=== PATIENT | female | born 1975 | race Caucasian/White ===

== ENCOUNTER → 2017-07-02 | Outpatient (CLI) | payer BC ==
[~2017-07-02] MED LIST: FLUO20CA42 PO; NAPR-243 PO
--- NOTE | 2017-07-02 19:45 | Diagnostic Imaging Report ---
PROCEDURE: US Thyroid. TECHNIQUE: Multiple real-time grayscale images were obtained of the thyroid in various projections. INDICATION: Elevated TSH. FINDINGS: The right thyroid lobe is 4.8 x 1.2 x 1.3 cm. The left lobe is 4.3 x 0.9 x 1.1 cm. There is a 0.6 x 0.4 x 0.4 cm left thyroid lobe isoechoic nodule with peripheral vascularity seen at its interface with the rest of the thyroid lobe. No other nodules seen. IMPRESSION: Nonspecific 6 mm nodule in the left thyroid lobe is seen. Dictated by: Dictated on workstation # [id number]
== END ==
LOC: RAD 10:05
PROVIDERS: ATTEND Family Medicine
DX: E04.1 Nontoxic single thyroid nodule (principal)
CPT/HCPCS: 76536

== ENCOUNTER 2017-09-08 12:20 | Emergency (ER) | payer BC ==
[~2017-09-08] VITALS: Ht 160 cm; Wt 60.3 kg
--- OUTSIDE RECORDS SUMMARY | 2017-09-08 12:25 | XMS REPORT | Continuity of Care Document ---
Author Author [facility] Organization [facility] Address Unknown Phone Unavailable Allergies Active Description Code Type Severity Reaction Onset Reported/Identified Relationship to Patient Clinical Status Yes Penicillins [id number] Drug Allergy Severe anaphylax 07/02/2010 Yes sulfamethoxazole [id number] Drug Allergy Severe HIVES 09/29/2014 Yes trimethoprim [id number] Drug Allergy Severe HIVES 09/29/2014 Medications There is no data. Problems Date Dx Coded Attending Type Code Diagnosis Diagnosed By 07/02/2010 Ot 873.42 07/02/2010 Ot E000.8 07/02/2010 Ot E849.0 07/02/2010 Ot E917.7 07/02/2010 Ot V06.1 07/11/2010 Ot V58.32 02/03/2012 Ot 844.1 SPRAIN MEDIAL COLLAT LIG 02/03/2012 Ot 924.01 CONTUSION OF HIP 02/03/2012 Ot 924.11 CONTUSION OF KNEE 02/03/2012 Ot 959.7 LOWER LEG INJURY NOS 02/03/2012 Ot E000.8 OTHER EXTERNAL CAUSE STATUS 02/03/2012 Ot E849.0 ACCIDENT IN HOME 02/03/2012 Ot E885.9 FALL FROM SLIPPING, TRIPPING, OR STUMBLI 08/24/2014 Ot 959.01 08/24/2014 Ot E000.8 08/24/2014 Ot E849.0 08/24/2014 Ot E928.9 08/24/2014 Ot 789.00 08/24/2014 LEOLA BURGOS DO Ot V76.12 09/07/2014 LEOLA BURGOS DO Ot V76.12 09/10/2014 LEOLA BURGOS DO Ot 793.89 09/29/2014 GLORIA MORENO APRN Ot 733.95 STRESS FRACTURE OF OTHER BONE 09/29/2014 GLORIA MORENO APRN Ot 845.10 SPRAIN OF FOOT NOS 09/29/2014 GLORIA MORENO [employer] LIBRARY CLERK Ot 959.7 LOWER LEG INJURY NOS 09/29/2014 GLORIA MORENO [employer] LIBRARY CLERK Ot E000.8 OTHER EXTERNAL CAUSE STATUS 09/29/2014 GLORIA MORENO [employer] LIBRARY CLERK Ot E001.1 ACTIVITIES INVOLVING RUNNING 09/29/2014 GLORIA MORENO [employer] LIBRARY CLERK Ot E849.[address]IGHW[address] 09/29/2014 GLORIA MORENO [employer] LIBRARY CLERK Ot E928.9 ACCIDENT NOS 03/10/2016 Ot 789.00 ABDOMINAL PAIN, UNSPECIFIED SITE 03/10/2016 LEOLA BURGOS DO S Ot V76.12 OTH SCREEN MAMMO-MALIGN NEOPLASM OF KENY 03/10/2016 LOAN BURGOS DOLINE S Ot 793.89 OTH (ABN) FINDINGS ON RADIOLOGICAL EXAMI 07/05/2016 PADMAJA DAVIS [employer] LIBRARY CLERK Ot Z12.31 ENCNTR SCREEN MAMMOGRAM FOR MALIGNANT NE 07/05/2016 PADMAJA DAVIS [employer] LIBRARY CLERK Ot Z12.31 ENCNTR SCREEN MAMMOGRAM FOR MALIGNANT NE 07/06/2016 PADMAJA DAVIS [employer] LIBRARY CLERK Ot Z12.31 ENCNTR SCREEN MAMMOGRAM FOR MALIGNANT NE 07/13/2016 PADMAJA DAVIS [employer] LIBRARY CLERK Ot Z12.31 ENCNTR SCREEN MAMMOGRAM FOR MALIGNANT NE 04/30/2017 PADMAJA DAVIS [employer] LIBRARY CLERK Ot Z12.31 ENCNTR SCREEN MAMMOGRAM FOR MALIGNANT NE 06/22/2017 PADMAJA DAVIS [employer] LIBRARY CLERK Ot Z12.31 ENCNTR SCREEN MAMMOGRAM FOR MALIGNANT NE 06/27/2017 PADMAJA DAVIS [employer] LIBRARY CLERK Ot Z12.31 ENCNTR SCREEN MAMMOGRAM FOR MALIGNANT NE 07/03/2017 LEOLA BURGOS DO S Ot E04.1 NONTOXIC SINGLE THYROID NODULE 07/12/2017 LEOLA BURGOS DO S Ot E04.1 NONTOXIC SINGLE THYROID NODULE Procedures There is no data. Results There is no data. Encounters ACCT No. Visit Date/Time Discharge Status Pt. Type Provider Facility Loc./Unit Complaint [id number] 07/11/2017 13:49:00 07/11/2017 23:59:59 CLS Preadmit LEOLA BURGOS DO S [facility] RAD MAMMO SCREENING [id number] 07/02/2017 10:05:00 07/02/2017 23:59:59 CLS Outpatient LIZETER LOAN ARCHERLINE S [facility] RAD ELEVATED TIH( VERIFY THIS) [id number] 07/04/2016 09:05:00 07/04/2016 23:59:59 CLS Outpatient PADMAJA DAVIS [employer] LIBRARY CLERK [facility] RAD SCREENING [id number] 09/29/2014 12:21:00 09/29/2014 13:15:00 DIS Emergency GLORIA MORENO [employer]RARY CLERK [facility] ER LEFT FOOT PAIN [id number] 08/24/2014 07:43:00 08/24/2014 23:59:59 CLS Outpatient LEOLA BURGOS DO S [facility] RAD [id number] 08/12/2014 11:28:00 08/12/2014 23:59:59 CLS Outpatient LEOLA BURGOS DO S [facility] RAD [id number] 02/03/2012 18:06:00 Document Registration [id number] 09/01/2011 08:38:00 Document Registration [id number] 07/11/2010 13:11:00 Document Registration [id number] 07/04/2010 14:06:00 Document Registration [id number] 07/02/2010 02:18:00 Document Registration
--- OUTSIDE RECORDS SUMMARY | 2017-09-08 12:25 | XMS REPORT ---
Author Author MINE SAEED [facility] Address [address] [place] [id number] Care Team Providers Care Finished Stock Inspector Name Role Phone MINE SAEED Unavailable PROBLEMS Unknown Problems ALLERGIES No Information SOCIAL HISTORY Never Assessed PLAN OF CARE VITAL SIGNS MEDICATIONS Unknown Medications RESULTS No Results PROCEDURES Procedure Date Ordered Result Body Site TWINRIX (HEP A/B) January 22, 2017 SINGLE IMMUNIZATION ADMIN January 22, 2017 IMMUNIZATIONS Vaccine Route Administration Date Status TWINRIX (HEP A/B) IM Intramuscular January 22, 2017 Administered
[2017-09-08] MEDS ORDERED: LEVO50TA6 PO (12:32)
--- NOTE | 2017-09-08 12:35 | ED Lower Extremity ---
General Chief Complaint: Lower Extremity Stated Complaint: L ANKLE INJURY Nursing Triage Note: pt reports rolling her l ankle this am. pt denies any other injury. Nursing Sepsis Screen: No Definite Risk Source: patient Exam Limitations: no limitations History of Present Illness Time seen by provider: 12:32 Initial Comments To ER with reports of rolling her left ankle this morning. Unable to bear weight on it since the injury. No other injuries. Onset: this morning Severity: moderate Pain/Injury Location: left ankle Method of Injury: twisted Modifying Factors: Worse With Movement Allergies and Home Medications Allergies Coded Allergies: Penicillins (Unverified Allergy, Severe, anaphylax, 07/02/10) sulfamethoxazole (Unverified Allergy, Severe, HIVES, 09/29/14) trimethoprim (Unverified Allergy, Severe, HIVES, 09/29/14) Home Medications Fluoxetine Hcl 20 Mg Capsule, 40 MG PO DAILY, (Reported) Levothyroxine Sodium 50 Mcg Tablet, 50 MCG PO DAILY, (Reported) Naproxen 500 Mg Tablet, 1 EACH PO BID PRN for PAIN, #14 FOR PAIN Prescribed by: GLORIA MORENO on 09/29/14 1300 Constitutional: see HPI EENTM: see HPI Respiratory: no symptoms reported Cardiovascular: no symptoms reported Genitourinary: no symptoms reported Musculoskeletal: see HPI Skin: no symptoms reported Psychiatric/Neurological: No Symptoms Reported Past Eippkry-Qmfppn-Wkvkly Hx Patient Social History Alcohol Use: Occasionally Uses Recreational Drug Use: No Smoking Status: Never a Smoker Recent Foreign Travel: No Contact w/Someone Who Travel: No Recent Infectious Disease Expo: No Physical Abuse: No Sexual Abuse: No Mistreated: No Fear: No Immunizations Up To Date Date of Influenza Vaccine: Jul 04, 2014 Surgeries History of Surgeries: Yes Surgeries: Section Respiratory History of Respiratory Disorde: No Cardiovascular History of Cardiac Disorders: No Neurological History of Neurological Disord: No Reproductive System Hx Reproductive Disorders: No Genitourinary History of Genitourinary Disor: No Gastrointestinal History of Gastrointestinal Di: No Musculoskeletal History of Musculoskeletal Dis: No Endocrine History of Endocrine Disorders: Yes Endocrine Disorders: Hypothyroidsim Are Your Blood Sugars Over 250: No HEENT History of HEENT Disorders: No Cancer History of Cancer: No Psychosocial History of Psychiatric Problem: Yes Behavioral Health Disorders: Anxiety, Depression Suicide Risk Score: 0 Integumentary History of Skin or Integumenta: No Blood Transfusions History of Blood Disorders: No Physical Exam Vital Signs Vital Sign - Last 12Hours 09/08/17 12:26 Temp 99.0 Pulse 109 Resp 18 B/P (MAP) 118/70 (86) Pulse Ox 98 Capillary Refill : Less Than 3 Seconds General Appearance: WD/WN, no apparent distress HEENT: PERRL/EOMI, normal ENT inspection Neck: non-tender, full range of motion Respiratory: no respiratory distress, no accessory muscle use Hips: bilateral hip non-tender, bilateral hip normal inspection, bilateral hip normal range of motion Legs: bilateral leg non-tender, bilateral leg normal inspection, bilateral leg normal range of motion Ankles: left ankle pain, left ankle soft tissue tenderness, left ankle swelling , left ankle other (no lacerations or puncture wounds to suggest an open fracture.) Feet: bilateral foot non-tender, bilateral foot normal inspection, bilateral foot normal range of motion Neurologic/Psychiatric: alert, normal mood/affect, oriented x 3 Skin: normal color, warm/dry Progress/Results/Core Measures Results/Orders My Orders Orders - GLORIA MORENO APRN Ankle, Left, 3 Views (09/08/17 12:32) Hydrocodone/Apap 5/325 Tablet (Lortab 5 (09/08/17 13:00) Vital Signs/I&O Vital Sign - Last 12Hours 09/08/17 12:26 Temp 99.0 Pulse 109 Resp 18 B/P (MAP) 118/70 (86) Pulse Ox 98 Blood Pressure Mean: 86 Departure Communication (Admissions) Progress Notes NAME: ADAM SAMPSON [facility] REC#: [id number] PT STATUS: REG ER : 1975 PHYSICIAN: GLORIA MORENO APRN ADMIT DATE: 09/08/17/ER Signed Date of Exam:09/08/17 ANKLE, LEFT, 3 VIEWS Patient History: Left ankle injury this morning, pain laterally. Technique: 3 views of the left ankle Comparison: None FINDINGS: There is a mildly posteriorly displaced oblique Mulligan type B fracture of the lateral malleolus. There is also a fracture through the posterior malleolus with mild posterior displacement involving approximately 30% of the articular surface on these images. Small ossifications are seen at the medial malleolus tip. There may be a donor site at the lateral aspect of the medial malleolus and these may represent avulsion fractures. Ankle mortise appears symmetric on these images. IMPRESSION: 1. Mildly displaced Mulligan type B fracture of the left lateral malleolus. Mildly displaced fracture of the posterior malleolus. Questionable age indeterminate avulsion fractures at the medial malleolus. Dictated by: Dictated on workstation # [id number] Dict: 09/08/17 1245 Trans: 09/08/17 1255 [facility] [id number] Interpreted by: UMANG MCCURDY MD Electronically signed by: UMANG MCCURDY MD 09/08/17 [id number] Communication (PCP) Patient has previously seen Dr. Mars in regards to any issues so she is established with him. She will call him Sunday. We placed her in a posterior short-leg and a stirrup style splint of the left ankle. She has her own crutches and instructed her to be nonweightbearing. She remains neurovascularly intact distally. Impression Impression: Primary Impression: Bimalleolar fracture of left ankle Disposition: HOME, SELF-CARE Condition: Stable Departure-Patient Inst. Decision time for Depature: 13:11 Referrals: LEOLA BURGOS DO (PCP/Family) Primary Care Physician Patient Instructions: Ankle Fracture (DC) Add. Discharge Instructions: 1. Return to ER for any concerns 2. Keep the splint on at all times until you follow up with Dr. Mars. Call him Sunday to make an appointment to be seen. Shower with this splint on even before you should keep it dry, so place a trash bag over the splint and tape it to your leg or hold his foot out of the bathtub/shower. Pain medication as directed. All discharge instructions reviewed with patient and/or family. Voiced understanding. Scripts Hydrocodone/Acetaminophen ([place] 5-325 Tablet) 1 Each Tablet 1 EACH PO Q4H Y for PAIN-MODERATE TO SEVERE, #60 TAB Prov: GLORIA MORENO APRN 09/08/17 Ondansetron (Zofran Odt) 8 Mg Tab.rapdis 8 MG PO Q6H Y for NAUSEA/VOMITING-1ST LINE, #20 TAB Prov: GLORIA MORENO APRN 09/08/17 Copy Copies To 1: ZAFUSELENE GUEVARA MD, PETER J APRN Sep 08, 2017 12:35
--- NOTE | 2017-09-08 12:50 | Diagnostic Imaging Report ---
Patient History: Left ankle injury this morning, pain laterally. Technique: 3 views of the left ankle Comparison: None FINDINGS: There is a mildly posteriorly displaced oblique Mulligan type B fracture of the lateral malleolus. There is also a fracture through the posterior malleolus with mild posterior displacement involving approximately 30% of the articular surface on these images. Small ossifications are seen at the medial malleolus tip. There may be a donor site at the lateral aspect of the medial malleolus and these may represent avulsion fractures. Ankle mortise appears symmetric on these images. IMPRESSION: 1. Mildly displaced Mulligan type B fracture of the left lateral malleolus. Mildly displaced fracture of the posterior malleolus. Questionable age indeterminate avulsion fractures at the medial malleolus. Dictated by: Dictated on workstation # [id number]
[2017-09-08] MEDS ORDERED: HYDROcodone/APAP 5 MG/325 MG (LORTAB) TAB PO ONE (13:00)
[2017-09-08] MEDS ORDERED: ONDANSETRON 4 MG (ZOFRAN) ORAL DISSOLVE TAB ONE (13:06)
[2017-09-08] MEDS ORDERED: HYDR-757 PO (13:14)
[2017-09-08] MEDS ORDERED: ONDA8TAB9 PO (13:14)
[2017-09-08 13:24] VITALS: BP 123/68
== END 2017-09-08 13:24 | disposition home or self-care (01) ==
LOC: EDUNIT# 12:20 → ER 12:22
DX: S82.842A Displaced bimalleolar fracture of left lower leg, initial encounter for closed fracture (principal); F41.9 Anxiety disorder, unspecified; F32.9 Major depressive disorder, single episode, unspecified; E03.9 Hypothyroidism, unspecified; Z87.59 Personal history of other complications of pregnancy, childbirth and the puerperium; X50.0XXA Overexertion from strenuous movement or load, initial encounter
CPT/HCPCS: 29515; 73610

== ENCOUNTER → 2018-03-11 | Outpatient (CLI) | payer BC ==
[~2018-03-11] MED LIST changes: +HYDR-757 PO; +LEVO50TA6 PO; +ONDA8TAB9 PO
--- NOTE | 2018-03-11 15:36 | Diagnostic Imaging Report ---
INDICATION: Routine screening. COMPARISON: 07/04/2016 and 08/12/2014. TECHNIQUE: 2D and 3D bilateral screening mammography was performed with CAD. FINDINGS: Both breasts remain heterogeneously dense, limiting the sensitivity of mammography. The parenchymal pattern is stable. No dominant mass or malignant appearing microcalcifications are seen. The axillae are unremarkable. IMPRESSION: No mammographic features suspicious for malignancy are identified. ACR BI-RADS Category 1: Negative. Result letter will be mailed to the patient. Note: At least 10% of breast cancer is not imaged by mammography. Dictated by: Dictated on workstation # [id number]
== END ==
LOC: RAD 07:39
PROVIDERS: ATTEND Family Medicine
DX: Z12.31 Encounter for screening mammogram for malignant neoplasm of breast (principal)
CPT/HCPCS: 76536; 77067

== ENCOUNTER → 2019-09-05 | Outpatient (CLI) | payer BC ==
[~2019-09-05] MED LIST changes: +HYDR-4226 PO; -HYDR-757 PO
--- NOTE | 2019-09-05 08:54 | Diagnostic Imaging Report ---
PROCEDURE: US Thyroid. TECHNIQUE: Multiple real-time grayscale images were obtained of the thyroid in various projections. INDICATION: Thyroid nodule, followup. Correlation is made with prior thyroid ultrasound from 03/11/2018. Right lobe of the thyroid measures 4.6 x 1.4 x 1.3 cm and the left lobe measures 4.0 x 0.8 x 1.0 cm. Isthmus is 2 mm in thickness. Tiny cyst lower pole right lobe of thyroid is stable approximately 2 mm. Hypoechoic nodule mid left lobe stable 4 mm x 3 mm x 3 mm. No dominant thyroid mass is detected. IMPRESSION: Stable thyroid ultrasound since examination from 03/11/2018. Dictated by: Dictated on workstation # [id number]
== END ==
LOC: RAD 07:38
PROVIDERS: ATTEND Internal Medicine Endocrinology, Diabetes & Metabolism
DX: E04.2 Nontoxic multinodular goiter (principal)
CPT/HCPCS: 76536

== ENCOUNTER 2020-08-30 05:29 | Outpatient (RCR) | payer BC ==
[~2020-08-30] VITALS: Ht 160 cm; Wt 61.4 kg
[~2020-08-30 05:29] MED LIST changes: +FLUO40CA PO; +LEVO75CA2 PO
== END 2020-08-30 10:21 | disposition home or self-care (01) ==
LOC: PREOP 05:29
PROVIDERS: ATTEND Obstetrics & Gynecology
DX: Z01.812 Encounter for preprocedural laboratory examination (principal); N92.0 Excessive and frequent menstruation with regular cycle; N85.00 Endometrial hyperplasia, unspecified; D64.9 Anemia, unspecified; R19.00 Intra-abdominal and pelvic swelling, mass and lump, unspecified site; Z20.828 Contact with and (suspected) exposure to other viral communicable diseases
CPT/HCPCS: 87635

== ENCOUNTER 2020-09-01 10:08 | Day surgery (SDC) | payer BC ==
[2020-09-01] VITALS (13 sets, daily range): BP systolic 105–123; BP diastolic 56–84
[~2020-09-01] VITALS: Ht 160 cm; Wt 61.4 kg
[2020-09-01] MEDS ORDERED: LEVOFLOXACIN 250 MG/50 ML IVPB 50 ML IV ONE (10:15)
[2020-09-01] MEDS: LACTATED RINGERS 1,000 ML IV PRN ×3 (10:40→15:02)
[2020-09-01] MEDS ORDERED: LIDOCAINE/EPI 1%-1:100,000 (XYLOCAINE) 50 ML ONE (10:44)
[2020-09-01] MEDS ORDERED: CATHETER FLUSH 10 ML SYR IV PRN (10:45)
[2020-09-01 10:52] LABS: BASOPHILS % (AUTO) 1 % (0-10); EOSINOPHILS % (AUTO) 1 % (0-10); HEMATOCRIT 38 % (35-52); HEMOGLOBIN 12.5 g/dL (11.5-16.0); LYMPHOCYTES # (AUTO) 1.4 10^3/uL (1.0-4.0); LYMPHOCYTES % (AUTO) 26 % (12-44); MEAN CORPUSCULAR HEMOGLOBIN 31 pg (25-34); MEAN CORPUSCULAR HGB CONC 33 g/dL (32-36); MEAN CORPUSCULAR VOLUME 93 fL (80-99); MEAN PLATELET VOLUME 10.4 fL (9.0-12.2); MONOCYTES # (AUTO) 0.4 10^3/uL (0.0-1.0); MONOCYTES % (AUTO) 7 % (0-12); NEUTROPHILS # (AUTO) 3.5 10^3/uL (1.8-7.8); NEUTROPHILS % (AUTO) 65 % (42-75); PLATELET COUNT 360 10^3/uL (130-400); WHITE BLOOD COUNT 5.4 10^3/uL (4.3-11.0)
[2020-09-01] MEDS ORDERED: proPOfol 200 MG/20 ML (DIPRIVAN) VIAL IV ONE ×2 (11:32→14:26)
[2020-09-01] MEDS ORDERED: ROCURONIUM 10 MG/ML 5 ML SYRINGE IV ONE (11:32)
[2020-09-01] MEDS ORDERED: SEVOFLURANE (ULTANE) 15 ML INHAL SOLN ONE ×3 (11:32→14:34)
[2020-09-01] MEDS ORDERED: ONDANSETRON 4 MG/2 ML (SDV) Z0FRAN ONE (11:32)
[2020-09-01] MEDS ORDERED: fentaNYL INJECTION 100 MCG/2 ML AMP ONE (11:33)
[2020-09-01] MEDS ORDERED: MIDAZOLAM 2 MG/2 ML (VERSED) VIAL ONE (11:33)
--- NOTE | 2020-09-01 13:01 | Progress Note-Pre Operative ---
Pre-Operative Progress Note H&P Reviewed The H&P was reviewed, patient examined and no changes noted. Date Seen by Provider: Sep 01, 2020 Time Seen by Provider: 13:00 Date H&P Reviewed: Sep 01, 2020 Time H&P Reviewed: 13:00 Pre-Operative Diagnosis: DUB/menorrhagia/pelvic mass KATHRYN GALLOWAY MD Sep 01, 2020 13:01
--- NOTE | 2020-09-01 13:02 | Progress Note-Post Operative ---
Post-Operative Progess Note Surgeon (s)/Microbiological Lab Technician (s) Surgeon KATHRYN GALLOWAY MD Microbiological Lab Technician: Jennifer Ramirez Pre-Operative Diagnosis DUB/menorrhagia/pelvic mass Post-Operative Diagnosis Same with Right anterior vaginal wall cyst and clinical appearance of appendicitis and pelvic adhesions and withpathology pending Procedure & Operative Findings Date of Procedure 09/01/20 Procedure Performed/Findings TLH with BSO, Excision of anterior vaginal wall cyst by performing partial vaginectomy and laparoscopic adhesiolysis and laparoscopic appendectomy and cystoscopy Anesthesia Type GETA Estimated Blood Loss Estimated blood loss (mL): Minimal Specimens/Packing Specimens Removed Uterus fallopian tubes and ovaries and the appendix and portion of the right anterior vaginal wall including the anterior vaginal wall cyst KATHRYN GALLOWAY MD Sep 01, 2020 13:02
[2020-09-01] MEDS ORDERED: DOCU-143 PO (13:03)
[2020-09-01] MEDS ORDERED: ESTR2TAB4 PO (13:03)
[2020-09-01] MEDS ORDERED: OXYC1TAB87 PO (13:03)
[2020-09-01] MEDS ORDERED: IBUP-1780 PO (13:03)
--- NOTE | 2020-09-01 13:05 | Discharge Inst-Surgical ---
Discharge Inst-Surgical Depart Medication/Instructions New, Converted or Re-Newed RX: RX on Chart Consults/Follow Up Patient Instructions: As directed Orders & Referrals Follow Up Appt: Return to clinic on Sunday September 06, 2020 at 9:30 AM for staple removal Call to make follow up appt. for patient in 4 weeks. Activity: Rest for 24 hours, than as tolerated. Wound Care: May remove Band-Aid tomorrow. Replace as desired. Keep incisions clean and dry. Wash daily with soap and water. Please call in RX to patient pharmacy. Diet: As tolerated-Clear Liquids only if nauseated. Tomorrow, may shower or tub bathe as desired. No driving for 24 hours, no alcoholic beverages for 24 hours, and nothing per vagina (no tampons, douching, or intercourse) for 8 weeks. Patient to return to the clinic as soon as possible for: Temperature greater than 101F, Severe Pain, Foul discharge from incision or vagina, Excessive Bleeding (more than a period). Activity Activity as Tolerated: No Diet Discharge Diet: No Restrictions KATHRYN GALLOWAY MD Sep 01, 2020 13:05
[2020-09-01] MEDS ORDERED: ONDANSETRON 4 MG/2 ML (SDV) Z0FRAN IVP PRN ×2 (13:45→15:00)
[2020-09-01] MEDS ORDERED: ESTROGENS CONJ INJECTION 25 MG in WATER (STERILE) FOR INJECTION 5 ML IV ONE (13:45)
[2020-09-01] MEDS ORDERED: PROMETHAZINE INJ 25 MG/ML (PHENERGAN) AMP IM PRN (13:45)
[2020-09-01] MEDS ORDERED: MEPERIDINE (DEMEROL) INJ 100 MG/ML IM PRN (13:45)
[2020-09-01] MEDS ORDERED: KETOROLAC 30 MG/ML VIAL ONE (14:27)
[2020-09-01] MEDS ORDERED: NEOSTIGMINE 3 MG/3 ML VIAL ONE (14:27)
[2020-09-01] MEDS ORDERED: GLYCOPYRROLATE 0.2 MG/ML (ROBINUL) 2 ML VIAL ONE (14:27)
[2020-09-01] MEDS: KETOROLAC 30 MG/ML VIAL IVP SCH ×2 (14:45→20:13)
[2020-09-01] MEDS ORDERED: HYDROmorphone 2 MG/ML VIAL (DILAUDID) ONE (14:51)
[2020-09-01] MEDS ORDERED: ESTROGENS CONJ IV 25 MG/5 ML (PREMARIN) VIAL ONE (14:51)
[2020-09-01] MEDS ORDERED: WATER (STERILE) FOR INJECTION 10 ML ONE (14:51)
[2020-09-01] MEDS ORDERED: PROMETHAZINE INJ 25 MG/ML (PHENERGAN) AMP IVP ONE (15:00)
[2020-09-01] MEDS ORDERED: morphine INJ 10 MG/ML 1ML (SYR OR VIAL) IVP ONE (15:00)
[2020-09-01] MEDS ORDERED: HYDROmorphone 2 MG/ML VIAL (DILAUDID) IV ONE (15:00)
[2020-09-01] MEDS ORDERED: MEPERIDINE (DEMEROL) INJ 50 MG/ML IVP ONE (15:00)
--- NOTE | 2020-09-01 15:50 | NUR ---
Pt to room 305 via bed accompanied by [employer] ATTENDANT's. Report rec'd from Sintia Covarrubias RN. RN to room to introduce self to pt. Assessment completed, VS taken, SCDs on and activated, IV fluids to pump, hammer patent and draining clear yellow urine to dependent drainage. Fresh ice water provided. Pt personal phone handed to pt from personal belonging bag per pt request. Pt c/o lower abd discomfort. Pain medication options explained. Pt requesting demerol/phenergan. Will admin.
--- NOTE | 2020-09-01 16:17 | NUR ---
Demerol and phenergan given per pt request. RT at bedside for IS. Pt Spo2 98% on 3L, will continue to monitor.
--- NOTE | 2020-09-01 16:45 | NUR ---
To room to check on pt. Pt sleeping soundly. Spo2 ranging 91-94% on 3L. Increased to 4L at this time. Spo2 increased to 95% at this time.
--- NOTE | 2020-09-01 17:00 | NUR ---
Pt still sleeping soundly. Spo2 still 94% and above on 4L.
[2020-09-01] MEDS: D5 LR IV SOLUTION 1,000 ML IV SCH ×2 (22:10→22:11)
[2020-09-01] MEDS: oxyCODONE/APAP 5/325MG (PERCOCET 5) TABLET PO PRN (22:16)
--- NOTE | 2020-09-01 23:50 | OPERATIVE REPORT ---
DATE OF SERVICE: 09/01/2020 PREOPERATIVE DIAGNOSES: Dysfunctional uterine bleeding/menorrhagia/intrauterine mass. POSTOPERATIVE DIAGNOSES: Dysfunctional uterine bleeding/menorrhagia/intrauterine mass with pathology pending as well as abnormal appearing appendix and anterior vaginal wall cyst consistent with a Bridget duct cyst. OPERATIVE PROCEDURE: Total laparoscopic hysterectomy with bilateral salpingo-oophorectomy as well as adhesiolysis, laparoscopic appendectomy, laparoscopic removal of a Bridget duct cyst from the right anterior vaginal wall and cystoscopy. OPERATIVE DESCRIPTION: With the patient in the supine position under satisfactory general anesthesia, she was repositioned in the dorsal lithotomy position in the [facility] and prepped and draped in the usual fashion for abdominal and vaginal surgery using the da Teresita assistance. Weighted speculum placed in posterior fornix of vagina, cervix exposed and grasped anteriorly with single tooth tenaculum. Uterus was sounded to 11 cm with uterine sound. The cervix inserted dilated with Dillon dilators to accommodate a Rosalva II manipulator, which was placed using a 6 mm x 8 cm uterine probe and a 25 mm colpotomy ring. Sutures of #1 Vicryl placed at 3 and 9 o'clock position of the cervix to affix the uterus to the manipulator. Rhodes catheter was placed in the urinary bladder and patient brought in low dorsal lithotomy position after removing the speculum and tenaculum. A 12 mm incision was made 9 cm superior to the umbilicus. Veress needle was placed through that incision into the abdominal cavity. Correct placement was confirmed with water drop test. The abdomen was insufflated with 2.4 liters of carbon dioxide and the Veress needle was removed and a 12 mm Optiview laparoscopic port placed. The abdominal wall was transilluminated and 8 mm ports were placed 8 cm lateral to the umbilicus at a level approximately 3 cm above the umbilicus. All ports were placed under direct vision. All three port sites were infiltrated with 1% lidocaine with epinephrine prior to incision. The patient now placed in Trendelenburg allowing the bowel spill out of the pelvis. The da Teresita column was advanced on the patient and docked and operative instrument placed in right and left lateral ports and I retired to the da Teresita console. At the console using a vessel sealer on the right and a bipolar fenestrated grasper on the left, the pelvis was first examined. There were extensive adhesions of the sigmoid to and sigmoid epiploica C and mesentery to the left IP ligament and left pericolic gutter. Those adhesions were taken free to allow access to the left IP ligament. Both ovaries were relatively normal in appearance. It did appear there were some hemosiderin deposits on both ovaries. There was some obvious endometriosis implants in the ovarian fossae bilaterally, more on the left than the right. Laparoscope was rotated. The appendix was identified. It was indurated and distorted and asymmetric appearing with injected blood vessels along its length. Decision was made to remove that concurrent with rest of the procedure performed. The laparoscope was brought back to the pelvis. Both ureters were identified and were seemed to be peristalsing. The procedure was initiated by grasping the right tube and ovary and elevating them and then clamping, cauterizing, dividing first the right IP ligament, then the right mesovarium, the right round ligament, the right broad ligament, right cardinal ligament. The same procedure performed on the left, allowing eventually for removal of both tubes and ovaries with the uterus. Both ureters were seemed to peristalse throughout the dissection. The anterior lower uterine segment peritoneum was exposed. There were extensive adhesions of the bladder well upon to the lower uterine segment from her previous . Very careful and meticulous dissection was undertaken using a monopolar shear on the right and a bipolar fenestrated grasper on the left to eventually free the bladder from these adhesions and then dissect the bladder down off the lower uterine segment and off of the cervix. The integrity of the bladder appeared to have been maintained throughout this dissection. With the bladder free and clear colpotomy w as initiated onto the colpotomy ring at 12 o'clock position and continued circumferentially until the entire colpotomy ring was exposed. The uterus with tubes and ovaries still attached was extracted through the vagina. At this point it was noted that there was a 6 mm x 1 cm cystic lesion on the anterior vaginal wall just distal to the vaginal cuff. This appears consistent with a Bridget duct cyst. The lesion was grasped and elevated with the bipolar grasper. And then a portion of the vaginal wall was excised by careful and meticulous dissection around and under the cystic lesion in order to remove that portion of the vaginal wall including the cyst.. That specimen was placed in the apex of the vagina and removed later after closure of the vaginal cuff. The specimen was labeled appropriately and sent to pathology for permanent section Two sutures of V-Loc barbed suture were used to close the vaginal cuff starting from the right angle and continuing almost all the way across the cuff and then using a second suture to finish. Both sutures were employed in the same manner in both uterine vessels pedicles were ligated with the angle stitches on each side. With hemostasis complete, attention was turned to the appendix. The appendix was grasped and elevated. The mesoappendix was perforated close to the base of appendix and then the mesoappendix itself was divided, taking care to ensure hemostasis along the way. With the mesoappendix divided and the appendix skeletonized on to the cecum, the da Teresita portion of the procedure was complete. The operative instruments were removed. The da Teresita column was undocked and removed from the patient using the laparoscope a grasper in the right lateral port and a stapler in the umbilical port. The appendix was elevated. The Endo-BULMARO was placed across the base of the appendix and fired, severing the appendix from its attachments. The appendix was placed in an Endobag and brought out through the umbilical incision. The stump of the appendix was copiously irrigated and then treated with several drops of Betadine solution. The pelvis was irrigated and the irrigant was aspirated out of the pelvis. With the procedure was complete, hemostasis assured and sponge and needle counts correct. The operative instruments were removed as were the ports. The abdomen was evacuated of insufflating gas in the process of removing the ports. The skin incisions were stapled after closing the fascia at the supraumbilical incision with [id number] suture of 2-0 Vicryl. The patient was brought partially out of the Trendelenburg and then using saline as a distending medium. Cystoscopy was performed visualizing both ureteral orifices and confirming free efflux of urine and visualizing the peristalsis of the ureter through the bladder wall. With that done, the cystoscope was removed. Rhodes catheter was replaced to dependent drainage. The vagina was examined by placing a speculum inside the defect from removal of the anterior vaginal wall cyst was hemostatic, the vaginal cuff was completely reapproximated and hemostatic. Sponge and needle counts were correct. Blood loss was minimal. The patient was uneventfully now awakened from her general anesthesia and transferred to recovery room in stable condition. Job ID: [id number] DocumentID: [id number] Dictated Date: 09/01/2020 15:26:18 Visual Aid Expert Date: 09/01/2020 23:49:27 Dictated By: KATHRYN GALLOWAY MD MTDD
[2020-09-02 00:05] VITALS: BP 115/56
[2020-09-02 04:25] VITALS: BP 128/67
[2020-09-02] MEDS: KETOROLAC 30 MG/ML VIAL IVP SCH ×2 (04:25→07:45)
[2020-09-02] MEDS: oxyCODONE/APAP 5/325MG (PERCOCET 5) TABLET PO PRN (04:26)
[2020-09-02] MEDS: D5 LR IV SOLUTION 1,000 ML IV SCH (05:45)
[2020-09-02 07:30] VITALS: BP 109/74
[2020-09-02] MEDS ORDERED: DOCUSATE SODIUM 100 MG (COLACE) CAP PO SCH (09:00)
[2020-09-02] MEDS ORDERED: ESTRADIOL 1 MG TAB (ESTRACE) PO SCH (09:00)
--- NOTE | 2020-09-02 09:00 | NUR ---
Pt up to BR voided 200cc of clear pink tinged urine. Steady on feet. Standby assist. Pt then independently ambulated in hallway with difficulty. No concerns voiced via pt at this time.
--- NOTE | 2020-09-02 09:40 | NUR ---
Dr Granados here to see pt. Discussed POC and discharge with pt.
--- NOTE | 2020-09-02 10:27 | Progress Note ---
Standard Progress Note Progress Notes/Assess & Plan Date Seen by a Provider: Sep 02, 2020 Time Seen by a Provider: 10:25 Progress/Assessment & Plan This patient is without complaint. She is ambulating, voiding, tolerating oral intake well and has good pain control. Patient denies chest pain, denies shortness of breath, denies nausea vomiting, and denies headache. Vital Signs Date Time Temp Pulse Resp B/P (MAP) Pulse Ox O2 Delivery O2 Flow Rate FiO2 09/02/20 07:30 98 Room Air 2.00 09/02/20 07:30 36.9 84 16 109/74 (86) 97 Room Air 09/02/20 04:25 36.5 83 18 128/67 (87) 98 Room Air 09/02/20 00:05 36.8 90 16 115/56 (75) 94 Room Air 09/01/20 20:13 36.7 94 16 114/75 (88) 98 Nasal Cannula 2.00 09/01/20 17:30 101 14 108/56 (73) 97 Nasal Cannula 4.00 09/01/20 16:30 90 14 116/69 (85) 94 Nasal Cannula 4.00 09/01/20 16:17 96 Room Air 09/01/20 15:55 36.7 82 16 119/68 (85) 98 Nasal Cannula 3.00 09/01/20 15:50 Nasal Cannula 3 09/01/20 15:50 36.1 20 122/79 (93) 98 Nasal Cannula 3 09/01/20 15:45 Nasal Cannula 3 09/01/20 15:40 20 122/80 (94) 98 Nasal Cannula 3 09/01/20 15:30 20 113/79 (90) 95 Nasal Cannula 3 09/01/20 15:30 Nasal Cannula 3 09/01/20 15:20 20 110/72 (85) 93 Room Air 09/01/20 15:15 OxyMask 3 09/01/20 15:10 20 123/70 (87) 98 OxyMask 3 09/01/20 15:00 20 117/63 (81) 100 OxyMask 3 09/01/20 15:00 OxyMask 5 09/01/20 14:50 20 107/57 (74) 100 OxyMask 5 09/01/20 14:46 OxyMask 5 09/01/20 14:46 36.1 20 105/59 (74) 100 OxyMask 5 09/01/20 10:50 36.6 81 18 120/84 (96) 100 Room Air I & O 09/02/20 07:00 Intake Total 5750 ml Output Total 2900 ml Balance 2850 ml Vital signs are stable. Patient is afebrile. The abdomen is benign. Extremities show no clubbing or cyanosis. There is no Homans' sign. Assessment and plan postoperative day #1 doing well. Plan will be for discharge home. We did have a lengthy discussion regarding the surgical procedures performed including the intended TLH with BSO but also with adhesiolysis and with appendectomy and with removal of an anterior vaginal wall cyst consistent with a Bridget duct cyst. Patient understands that pathology will be followed up on all of the surgical specimen Final Diagnosis Menorrhagia/ pelvic mass/some degree of appendicitis/Bridget duct cyst KATHRYN GALLOWAY MD Sep 02, 2020 10:27
[2020-09-02 11:20] VITALS: BP 109/74
--- NOTE | 2020-09-02 11:20 | NUR ---
COURTNEY SAMPSON Halima demonstrates understanding of discharge instructions and accurately returns instructions upon questioning. Copy of Post-Discharge Instructions and Medication Discharge Instructions given to Courtney. COURTNEY SAMPSON Halima is able to manage continuing needs after discharge. Patients belongings remain with pt. Skin dry and intact; no breakdown noted. Patient discharged from 3305-1 on 09-02-2020 at 1120 am . COURTNEY SAMPSON Halima left floor via wheel chair, accompanied by this nurse. No concerns voiced via pt at this time. 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
--- NOTE | 2020-09-02 15:27 | Anesthesia-General Post-Op ---
General Patient Condition Mental Status/LOC: Same as Preop Cardiovascular: Satisfactory Nausea/Vomiting: Absent Respiratory: Satisfactory Pain: Controlled Complications: Absent Post Op Complications Complications None Follow Up Care/Instructions Patient Instructions None needed. Anesthesia/Patient Condition Patient Condition Patient is doing well, no complaints, stable vital signs, no apparent adverse anesthesia problems. No complications reported per nursing. KEITH ANDERSON CRNA Sep 02, 2020 15:27
[2020-09-02] MEDS ORDERED: IBUPROFEN 800 MG (MOTRIN) TAB PO SCH (18:00)
== END 2020-09-02 11:20 | disposition home or self-care (01) ==
LOC: SDC 10:08 → WS 14:53 → SDC 09-02 11:20
PROVIDERS: ATTEND Obstetrics & Gynecology
DX: D25.1 Intramural leiomyoma of uterus (principal); N92.0 Excessive and frequent menstruation with regular cycle; N73.6 Female pelvic peritoneal adhesions (postinfective); N83.202 Unspecified ovarian cyst, left side; N83.201 Unspecified ovarian cyst, right side; Q52.4 Other congenital malformations of vagina; N94.5 Secondary dysmenorrhea; N80.0 Endometriosis of uterus; N83.8 Other noninflammatory disorders of ovary, fallopian tube and broad ligament; F32.9 Major depressive disorder, single episode, unspecified; E03.9 Hypothyroidism, unspecified; Z79.899 Other long term (current) drug therapy; Z88.0 Allergy status to penicillin; Z88.2 Allergy status to sulfonamides; Z88.1 Allergy status to other antibiotic agents; Z87.42 Personal history of other diseases of the female genital tract
CPT/HCPCS: 36415; 84703; 85025; 86850; 86900; 86901; 87081; 88304; 88305; 88307; 94664

== ENCOUNTER → 2023-08-13 | Outpatient (CLI) | payer BC ==
[~2023-08-13] MED LIST changes: +DOCU-143 PO; +ESTR2TAB4 PO; +IBUP-1780 PO; +OXYC1TAB87 PO
--- NOTE | 2023-08-13 08:57 | Diagnostic Imaging Report ---
INDICATION: Routine screening. COMPARISON is made with prior mammograms 03/11/2018 and 07/04/2016. 2-D and 3-D bilateral screening mammography was performed with CAD. Both breasts are heterogeneously dense, limiting the sensitivity of mammography. The parenchymal pattern is stable. No mass or malignant-appearing microcalcifications are identified. Axillae are unremarkable. IMPRESSION: BI-RADS Category 1. No mammographic features suspicious for malignancy are identified. ACR BI-RADS Category 1: Negative. Result letter will be mailed to the patient. Note: At least 10% of breast cancer is not imaged by mammography. Dictated by: Dictated on workstation # [id number]
== END ==
LOC: RAD 07:45
PROVIDERS: ATTEND Family Medicine
DX: Z12.31 Encounter for screening mammogram for malignant neoplasm of breast (principal)
CPT/HCPCS: 77063; 77067